=== PATIENT | female | born 1970 | race Caucasian/White ===

== ENCOUNTER 2017-07-20 12:32 | Emergency (ER) | payer OTHER ==
[~2017-07-20] VITALS: Ht 167.6 cm; Wt 70.3 kg
[~2017-07-20 12:32] MED LIST: AVELOX400 MG PO; NORCO 5-325 TA1 EACH PO
[2017-07-20 12:50] LABS: URINE BILIRUBIN NEGATIVE (Negative); URINE BLOOD 3+ (Negative); URINE CLARITY CLEAR; URINE COLOR YELLOW; URINE GLUCOSE-RANDOM* NEGATIVE (Negative); URINE KETONES NEGATIVE (Negative); URINE LEUKOCYTES NEGATIVE (Negative); URINE NITRITE NEGATIVE (Negative); URINE PROTEIN (DIPSTICK) NEGATIVE (Negative); URINE SPECIFIC GRAVITY >= 1.030 (1.005-1.035); URINE UROBILINOGEN 0.2 E.U./dl (0.2-1.0)
[2017-07-20 13:01] LABS: BACTERIA 1-9 Few /HPF (None Seen); CASTS None Seen /LPF (None Seen); SQUAMOUS 0-3 Few /LPF (0-3); URINE WBC 0-5 Rare /HPF (0-5)
[2017-07-20 13:02] LABS: CRYSTALS None Seen /LPF (None Seen)
[2017-07-20 13:34] LABS: RDW 12.5 % (10.5-14.5)
[2017-07-20 13:36] LABS: ABSOLUTE NEUTROPHILS 13.2 thou/uL (1.4-8.2); BASOPHILS 0.5 % (0.0-2.0); EOSINOPHILS 0.3 % (0.0-3.0); HEMATOCRIT 40.7 % (37.0-47.0); HEMOGLOBIN 14.2 gm/dL (12.0-15.0); LYMPHOCYTES 5.5 % (24.0-44.0); MCH 30.5 pg (26.0-34.0); MCHC 34.8 g/dL (28.0-37.0); MCV 87.7 fL (80.0-100.0); PLATELET COUNT 181 thou/uL (150-400); POLYS 87.7 % (36.0-66.0); RBC 4.64 mil/uL (4.20-5.00); WBC 15.1 thou/uL (4.0-11.0)
[2017-07-20 13:47] LABS: CALCIUM 9.5 mg/dL (8.5-10.1); CREATININE 1.4 mg/dL (0.6-1.0)
[2017-07-20] MEDS ORDERED: IBUPROFEN 600600 M1 PO (14:16)
[2017-07-20] MEDS ORDERED: FLOMAX0.4 MG PO (14:16)
[2017-07-20] MEDS ORDERED: NORCO 5-325 TA1 EACH PO (14:16)
[2017-07-20 14:49] VITALS: BP 148/91
== END 2017-07-20 14:50 | disposition home or self-care (01) ==
LOC: ER 12:32
PROVIDERS: Nurse Practitioner
DX: N20.0 Calculus of kidney (principal); N39.0 Urinary tract infection, site not specified; I10 Essential (primary) hypertension; Z88.0 Allergy status to penicillin

== ENCOUNTER → 2017-08-07 | Outpatient (CLI) | payer OTHER ==
[~2017-08-07] MED LIST changes: +FLOMAX0.4 MG PO; +IBUPROFEN 600600 M1 PO
== END ==
LOC: GI 06:34 → RAD 16:59
DX: K21.9 Gastro-esophageal reflux disease without esophagitis (principal); R47.02 Dysphasia; R07.9 Chest pain, unspecified; M25.512 Pain in left shoulder